=== PATIENT | female | born 1980 | race Two or more races ===

== ENCOUNTER 2017-04-12 20:20 | Inpatient (IN) | payer OTHER ==
[2017-04-12 21:17] VITALS: BMI 23.6
[2017-04-12] MEDS ORDERED: Lactated Ringer's 1,000 ML IV SCH ×2 (21:30)
[2017-04-12 23:11] LABS: BASO % 0.2 % (0.0-2.0); EOS # 0.1 K/uL (0.0-0.7); EOS % 0.6 % (0.0-4.0); HEMOGLOBIN 12.7 g/dL (12.0-16.0); LYMPH # 2.3 K/uL (1.0-4.3); LYMPH % 22.2 % (20.0-40.0); MEAN CELL VOLUME 89.1 fl (81.0-99.0); MEAN CORPUSCULAR HGB CONC 33.7 g/dL (33.0-37.0); MEAN PLATELET VOLUME 9.4 fl (7.2-11.7); MONO # 0.8 K/uL (0.0-0.8); MONO % 7.6 % (0.0-10.0); NEUT # 7.1 K/uL (1.8-7.0); NEUT % 69.4 % (50.0-75.0); NRBC % 0.3 % (0.0-0.0); RBC 4.22 Mil/uL (3.80-5.20); RED CELL DISTRIBUTION WIDTH 14.3 % (11.5-14.5); WHITE BLOOD COUNT 10.1 K/uL (4.8-10.8)
[2017-04-13] MEDS ORDERED: ceFAZolin IV 2 gm in Dextrose 2 GM/50 ML BAG IVPB ONE (08:08)
[2017-04-13] MEDS ORDERED: Morphine 1 mg/ml preservative-free Inj(Duramorph) ONE (08:17)
[2017-04-13] MEDS ORDERED: Propofol 10 mg/ml Inj (20 ML) ONE (08:42)
[2017-04-13] MEDS ORDERED: Lidocaine 2% MPF (5 ml) Inj ONE (08:42)
[2017-04-13] MEDS ORDERED: ceFAZolin 1 GM in Sodium Chloride 0.9% 100 ML IVPB ONE (08:44)
[2017-04-13] MEDS ORDERED: Oxytocin 30 UNITS in Sodium Chloride 0.9% 500 ML IV SCH (08:45)
--- NOTE | 2017-04-13 09:15 | OBADHP ---
Datetime: 04/12/2017 21:30 Admit Comment, IP Provider: 36 yo at 39.6 weeks gestational age presented to labor and delivery for scheduled induction of labor due to IUGR. States she has started feeling contractins about 6 hrs ago, occuring every 10 min, rates pain 5/10. Reports good movement, denies vaginal bleeding, d enies loss of fluid. No complaints at this time. care: Dr. Lawton GBS neg, ABO Opos antibody neg, HBsAg neg, 3rd trimester RPR nonreactive, 3rd trimester HIV negati ve Obhx: NVD 2011 at 38+ weeks PMH: no medical issues Surg: none Fam hx: father htn, dm2 Social: denies tobacco, alcohol, drug use Allergies: none Meds: PNV ROS: denies headache, dizziness, chest pain, shortness of breath, burning with urination, nausa, v omiting PE: see notes A: 36 yo with single IUP 38+ weeks, presenting for induction. P: Admit to unit; initiate induction protocol with cervidil. Pt seen with and examined by Dr. Olivares. [id number] Pelvic Type - PN: Adequate Extremities - PN: Normal Abdomen - PN: Normal Back - PN: Normal Breast - PN: Not Done Lungs - PN: Normal Heart - PN: Normal Thyroid - PN: Not Done Neurologic - PN: Normal HEENT - PN: Normal General - PN: Normal FHR - Baseline A Provider: 150 Comments, ACOG Physical Exam: SVE 1-2 cm, long and thick IP Hx Assessment: The History has been Reviewed and is Current Vital Signs Provider: Reviewed IP Chief Complaint: Scheduled induction of labor NICHD Variability Prov Fetus A: Moderate 6-25bpm NICHD Accel Fetus A IP Provider: [id number] FHR Category Provider Fetus A: Category I Dilatation, Provider: 1-2 Effacement, Provider: thick Station, Provider: high Genitourinary Exam: Normal DTRs - PN: Not Done EGA AdmitDate IP: 39.6 IP Adm Impression: Term, intrauterine IP Admit Plan: Admit to unit
--- NOTE | 2017-04-13 09:33 | OBPN ---
Datetime: 04/13/2017 07:28 IP Progress Impression: Non-reassuring heart rate IP Informed Consent Obtain: Section Delivery; Dilatation and Curretage IP Procedures: Sterile Vag Exam IP Progress Plan: Deliver- Section IP Progress Note Comment: Patient with prolonged deceleration followed by persistent tachycardia. Du e to category 3 tracing, recommend patient delivery. Discussed with patient risks, benefits , alternatives to delivery. All patient questions answered. Anesthesia notified. Vital Signs Provider: Reviewed; Within Normal Limits Dilatation, Provider: 4 Effacement, Provider: 100 Station, Provider: -3 Datetime: 04/12/2017 21:30 FHR - Baseline A Provider: 150 NICHD Accel Fetus A IP Provider: 15X15 FHR Category Provider Fetus A: Category I NICHD Variability Prov Fetus A: Moderate 6-25bpm
--- NOTE | 2017-04-13 09:38 | OBDS ---
DELIVERY PERSONNEL Delivery Doctor: Karan Olivares MD Scrub Nurse: Yanet Villa Seed Analyst: Ronni Lee RN Anesthesiologist: MATERNAL INFORMATION Delivery Anesthesia: Spinal Medications in Delivery: Pitocin 20u/1000LR Estimated Blood Loss (ml): 800 Placenta Cultured: No Provider Comments: Primary low flap transverse section via Pfannenstiel incision due to non reassuring heart tracing. Patient delivered a viable with Apgars of 9 and 9 respectively. Placenta delivered manually . Normal uterus, normal tubes and ovaries bilaterally. Estimated blood loss 800 mL Fluids 1600 mL lactated Ringer's Urine output 50 mL of clear urine No complications LABOR SUMMARY EDC: 04/13/2017 00:00 No. Babies in Womb: 1 Attempted: No Labor Anesthesia: None LABOR INFORMATION Reason for Induction: Intrauterine Growth Retardation Cervical Ripening Agents: Cervidil (Annotations: Pt tolerated well. ) Other Ripening Agents: cervidil Oxytocin: N/A Group B Beta Strep: Negative Steroids Given: None Reason Steroids Not Administered: Not Applicable MEMBRANES Membranes Rupture Method: Artificial Rupture of Membranes: 04/13/2017 08:30 Length of Rupture (hrs): 0.00 Amniotic Fluid Color: Clear Amniotic Fluid Amount: None Amniotic Fluid Odor: Normal CSECTION DELIVERY Primary Indication: Nonreassuring Status CSection Urgency: Emergency CSection Incidence: Primary Labor: Labor Elective: Nonelective CSection Incision: Lower Uterine Transverse Uterine Closure: Single-layer closure BABY A INFORMATION Infant Delivery Date/Time: 04/13/2017 08:30 Method of Delivery: Vaginal Born in Route : No : N/A Forceps: N/A Vacuum Extraction: N/A Shoulder Dystocia : No SHOULDER DYSTOCIA BABY A Delivery Date/Time: 04/13/2017 08:30 PRESENTATION/POSITION BABY A Presentation: Cephalic INFORMATION BABY A Gestational Age at Delivery: 40.0 Gestational Status: Term Infant Outcome : Liveborn Infant Condition : Stable Infant Sex: Female IDENTIFICATION/MEDS BABY A ID Band Number: [id number] ID Band Location: Left Leg; Left Arm WEIGHT/LENGTH BABY A Birthweight (gms): 3320 Weight (lb): 7 Weight (oz): 5 CORD INFORMATION BABY A No. Cord Vessels: 3 Nuchal Cord : N/A
[2017-04-13] MEDS ORDERED: DiphenhydrAMINE 50 mg/ml Inj IVP PRN (13:05)
[2017-04-13] MEDS ORDERED: Morphine 1 mg/ml preservative-free Inj(Duramorph) IT ONE (14:30)
--- NOTE | 2017-04-13 20:37 | OP ---
PROCEDURE DATE: 04/13/2017 PREOPERATIVE DIAGNOSIS: Nonreassuring heart tracing. POSTOPERATIVE DIAGNOSIS: Nonreassuring heart tracing. OPERATION PERFORMED: Primary low-flap transverse section via Pfannenstiel incision. SURGEON: Pasha Olivares MD SUPERVISING ARCHITECT: John Encarnacion MD. Dr. Encarnacion was present from the beginning of the procedure to the end of procedure. Dr. Encarnacion was integral in exposing the surgical field, controlling intraoperative bleeding, and manual delivery of the infant. ANESTHESIOLOGIST: Dr. Alcantara. TYPE OF ANESTHESIA: Spinal. OPERATIVE FINDINGS: Viable with Apgars of 9 and 9 at one and five minutes respectively. Normal uterus, normal tubes and ovaries bilaterally. ESTIMATED BLOOD LOSS: 800 mL. FLUIDS: 1600 mL lactated Ringer's. URINE OUTPUT: 50 mL of clear urine at the end of procedure. DESCRIPTION OF PROCEDURE: The patient was taken to the operating room where spinal anesthesia was found to be adequate. The patient was prepped and draped in normal sterile fashion in the dorsal supine position with the leftward tilt. A Pfannenstiel skin incision was made with a scalpel. This was carried down through to the underlying layer of fascia with the scalpel. Midline defect was made in the fascial layer with a scalpel. The fascial incision was then extended bilaterally sharply with curved Anne scissors. The fascial layer was from the underlying rectus muscles both bluntly and sharply with curved Anne scissors. The peritoneum was then identified, tented up with Henna clamps x2, and entered sharply with Metzenbaum scissors. This peritoneal incision was then extended superiorly and inferiorly with good visualization of the urinary bladder. Bladder blade was inserted into the abdomen. The vesicouterine peritoneum was then identified, tented up with Henna clamps x2 and entered sharply with Metzenbaum scissors. This peritoneal incision was extended bilaterally sharply with Metzenbaum scissors. The bladder flap was created digitally. The Amparo retractors were placed over the urinary bladder. The uterus was incised with a scalpel. The 's head was delivered atraumatically. Nose and mouth were suctioned with bulb suction. The remainder of the was delivered without complication. The cord was clamped and cut. The infant was handed off to waiting pediatricians. The placenta was removed manually. The uterus was cleared of all clots and debris. The uterine incision was repaired with 0 Vicryl in a running, locked fashion. Reinspection of the uterine incision proved excellent hemostasis. The abdomen and pelvis were irrigated with copious amounts of warm normal saline. Reinspection of the uterine incision proved excellent hemostasis. All instruments were removed from the patient. The peritoneal layer was closed with a running stitch of 2-0 chromic. The rectus muscles were reapproximated in the midline with a running stitch of 2-0 chromic. The fascial layer was closed with a running stitch of 0-Vicryl. Subcutaneous tissue was closed with a running stitch of 3-0 plain. The skin was closed with a subcutaneous stitch of 3-0 Vicryl. The patient tolerated the procedure well. All sponge count, lap count, and needle counts were correct x2. The patient was given 2 g of Ancef just prior to the beginning of the procedure. There were no complications. The patient was taken to the recovery room awake and in stable condition. Pasha Olivares MD
[2017-04-14 03:12] VITALS: O2SAT 100
[2017-04-14 07:25] LABS: HEMOGLOBIN 11.8 g/dL (12.0-16.0); MEAN CELL VOLUME 87.8 fl (81.0-99.0); MEAN CORPUSCULAR HEMOGLOBIN 30.2 pg (27.0-31.0); MEAN CORPUSCULAR HGB CONC 34.4 g/dL (33.0-37.0); RBC 3.89 Mil/uL (3.80-5.20); RED CELL DISTRIBUTION WIDTH 14.4 % (11.5-14.5); WHITE BLOOD COUNT 12.9 K/uL (4.8-10.8)
[2017-04-14] MEDS: Oxycodone/Acetaminophen 5/325 mg Tab PO PRN ×2 (09:17→23:18)
--- NOTE | 2017-04-15 07:40 | OBPPN ---
Datetime: 04/15/2017 07:34 PP Pain Prov: Within normal limits PP Nausea Prov: Denies PP Flatus Prov: Yes PP BM Prov: Yes PP Abdomen/Uterus Prov: Normal PP Lochia Prov: Normal PP Extremities Prov: Normal PP C/S Incision Prov: Normal PP Progress Prov: Normal PP Comments Phys Exam Prov: Incision: intact PP Impression Prov: Normal progression PP Plan Prov: Continue present management PP Progress Note Prov: POD 2 s/p primary c/s for NRFHT, doing well, breast pumping Baby is in level 2 nursery Continue current management Vital Signs Provider PP: Reviewed; Within Normal Limits
--- NOTE | 2017-04-16 09:44 | OBPPN ---
Datetime: 04/16/2017 09:42 PP Pain Prov: Within normal limits PP Nausea Prov: Denies PP Flatus Prov: Yes PP BM Prov: Yes PP Abdomen/Uterus Prov: Normal PP Lochia Prov: Normal PP C/S Incision Prov: Normal PP Progress Prov: Normal PP Comments Phys Exam Prov: Incision intact w/ steri strips PP Impression Prov: Normal progression PP Plan Prov: Continue present management PP Progress Note Prov: POD 3 s/p primary primary c/s for NRFHT Baby in level 2 nursery Pt may be discharged tomorrow if baby needs to stay Vital Signs Provider PP: Reviewed
--- NOTE | 2017-04-17 10:15 | OBDCSUM ---
Datetime: 04/17/2017 10:14 Discharged to, Provider: Home Follow up at, Provider: [facility] Disch Instr Activity: Normal activity Disch Instr Activity: Normal activity Disch Instr Diet: Regular Discharge Instructions, Provider: Routine instructions given Discharge Diagnosis, Provider: Term Delivered Discharge Time: 02/14/2018 12:00 Follow up in weeks, Provider: 1-2 weeks Disch Referrals: None Contraception discussed, Prov: Yes Disch Activity Restrictions: No exercising; No lifting; No driving; Minimize walking; Minimize stair -climbing; No sexual activity; Nothing in vagina - [place], tampons, douche Disch Activity Restrictions: No sexual activity; Nothing in vagina - [place], tampons, douche Discharge Diagnosis Prov Other: Sectoin for NRT
--- NOTE | 2017-04-17 10:15 | OBPPN ---
Datetime: 04/17/2017 10:13 PP Pain Prov: Within normal limits PP Nausea Prov: Denies PP Flatus Prov: Yes PP BM Prov: Yes PP Breasts Prov: Normal PP Heart Prov: Normal PP Lungs Prov: Normal PP Abdomen/Uterus Prov: Normal PP Lochia Prov: Normal PP Vulva/Perineum Prov: Normal PP CVA Tenderness Prov: Normal PP Extremities Prov: Normal PP C/S Incision Prov: Normal PP Progress Prov: Normal PP Impression Prov: Normal progression PP Plan Prov: Discharge PP Progress Note Prov: She feels fine. A; S/P C-seciotn for NRT PLAN: discharge home and follow up in 1-2w Vital Signs Provider PP: Reviewed; Within Normal Limits
[2017-04-18 00:16] VITALS: BP 99/65; PULSE 58; RESP 18; TEMP 97.6
== END 2017-04-17 19:30 | disposition home or self-care (01) | DRG 766 ==
LOC: H.EROB2 20:20 → H.L&D 21:17 → H.OB/GYN 04-13 11:15
PROVIDERS: ADMIT Obstetrics & Gynecology; ATTEND Obstetrics & Gynecology
PROC: 4A1HXCZ Monitoring of Products of Conception, Cardiac Rate, External Approach (ICD-10-PCS; 2017-04-12)
PROC: 10D00Z1 Extraction of Products of Conception, Low, Open Approach (ICD-10-PCS; principal; 2017-04-13)
PROC: 10907ZC Drainage of Amniotic Fluid, Therapeutic from Products of Conception, Via Natural or Artificial Opening (ICD-10-PCS; 2017-04-13)
DX: O36.5930 Maternal care for other known or suspected poor fetal growth, third trimester, not applicable or unspecified (principal); O76 Abnormality in fetal heart rate and rhythm complicating labor and delivery; O09.523 Supervision of elderly multigravida, third trimester; Z37.0 Single live birth; Z3A.39 39 weeks gestation of pregnancy